=== PATIENT | female | born 1965 | race African-American/Black ===

== ENCOUNTER 2019-07-13 23:55 | Inpatient (IN) | payer MEDICAID ==
[~2019-07-13] VITALS: Ht 172.7 cm; Wt 82.6 kg
--- NOTE | 2019-07-14 00:10 | NUR ---
PT AAOX4. [id number] C/O GENERALIZED BODY ACHE. PT STATES SHE FEELS THAT HER BODY "STARTED HURTING AFTER I SHOWERED." PT PLACED IN GOWN AND PLACED ON MONITOR AND PULSE OX. VSS. NO ACUTE DISTRESS NOTED.
--- NOTE | 2019-07-14 00:15 | NUR ---
XRAY AT BEDSIDE
[2019-07-14] MEDS ORDERED: MORPHINE SULFATE INJ 4 MG/ML DISP.SYRIN ONE (00:27)
[2019-07-14] MEDS ORDERED: ONDANSETRON HCL/PF 4 MG/2 ML VIAL ONE (00:27)
[2019-07-14] MEDS ORDERED: MORPHINE SULFATE INJ 2 MG/ML DISP.SYRIN IV ONE (00:30)
[2019-07-14] MEDS ORDERED: IV NS 0.9% 500 ML BAG IV ONE (00:30)
[2019-07-14] MEDS ORDERED: ONDANSETRON HCL/PF 4 MG/2 ML VIAL IVP ONE (00:30)
--- NOTE | 2019-07-14 00:40 | NUR ---
PILOT AT BEDSIDE FOR LAB COLLECTION.
[2019-07-14 00:44] LABS: BASOPHILS % (AUTO) 0.7 % (0.0-2.0); HEMATOCRIT 46 % (33-45); HEMOGLOBIN 14.9 g/dL (11.5-14.8); LYMPHOCYTES # (AUTO) 1.4 /CMM (0.8-4.8); LYMPHOCYTES % (AUTO) 21.4 % (20.0-44.0); MEAN CORPUSCULAR HGB CONC 33 g/dl (31.0-36.0); MEAN CORPUSCULAR VOLUME 82 fL (82-100); MONOCYTES # (AUTO) 0.5 /CMM (0.1-1.30); MONOCYTES % (AUTO) 7.4 % (2.0-12.0); NEUTROPHILS # (AUTO) 4.6 /CMM (1.8-8.9); NEUTROPHILS % (AUTO) 70.5 % (43.0-81.0); PLATELET COUNT (AUTO) 252 /CMM (150-450); RED BLOOD CELL COUNT(AUTO) 5.62 MIL/uL (4.0-5.2); WHITE BLOOD COUNT (AUTO) 6.5 K/uL (4.3-11.0)
[2019-07-14 00:54] LABS: CALCIUM, SERUM 10.4 mg/dL (8.5-10.1); POTASSIUM 3.7 mmol/L (3.5-5.1)
--- NOTE | 2019-07-14 01:02 | NUR ---
Patient is resting comfortably in bed. Easily aroused. VSS.
[2019-07-14 01:03] LABS: ALBUMIN 4.2 g/dL (3.4-5.0); BILIRUBIN,DIRECT 0.1 mg/dL (0.0-0.2); BILIRUBIN,TOTAL 0.6 mg/dL (0.2-1.0); TOTAL PROTEIN, SERUM 8.6 g/dL (6.4-8.2)
--- NOTE | 2019-07-14 02:38 | NUR ---
REPORT GIVEN TO CARLEE PATEL FOR MAL[facility]
--- NOTE | 2019-07-14 02:42 | NUR ---
PT TRANSFERED PER ACLS PROTOCOL
[2019-07-14 02:50] VITALS: BP 126/79
--- NOTE | 2019-07-14 02:50 | NUR ---
RETAIL MANAGERJOB COUNSELOR NOTES PATIENT ARRIVED ON UNIT, 249 VIA GURNEY AND ACCOMPANIED BY ER STAFF; PATIENT AWAKE, A/O X2, WITH CONFUSION; BREATHING EVEN AND UNLABORED; NO SOB; NO S/S OF ACUTE RESPIRATORY DISTRESS NOTED; TELE MONITOR ATTACHED -- SINUS TACHY HR: 117; PATIENT IS A POOR HISTORIAN OF MEDICAL HISTORY; PATIENT SKIN INTACT; L HAND #22 INTACT AND PATENT, FLUSHING WELL, NO S/S OF REDNESS OR INFILTRATION NOTED; SAFETY PRECAUTIONS IMPLEMENTED; BED LOCKED IN LOW POSITION; SIDE RAILS X3; CALL LIGHT WITHIN REACH; WILL CONTINUE TO MONITOR
[2019-07-14] MEDS ORDERED: IV NS 0.9% 1,000 ML IV PRN ×2 (03:14→07:34)
[2019-07-14] MEDS ORDERED: ZOLPIDEM TARTRATE 5 MG TABLET PO PRN (03:30)
[2019-07-14] MEDS ORDERED: ASPIRIN 325 MG TABLET PO ONE (03:30)
[2019-07-14] MEDS ORDERED: HYDROCODONE/APAP 5/325MG 1 EACH TABLET PO PRN (03:30)
[2019-07-14] MEDS ORDERED: Z GUARD REMEDY 2 OZ OINT TP PRN (03:30)
[2019-07-14] MEDS ORDERED: ONDANSETRON HCL/PF 4 MG/2 ML VIAL IVP PRN (03:30)
[2019-07-14] MEDS ORDERED: MAGNESIUM HYDROXIDE 30 ML UDC PO PRN (03:30)
[2019-07-14] MEDS ORDERED: MAG HYDROX/AL HYDROX/SIMETH 30 ML UDC PO PRN (03:30)
[2019-07-14 04:00] VITALS: BP 128/81
--- NOTE | 2019-07-14 05:45 | NUR ---
LADDERMAN NOTES LEGAL ANALYST AT BEDSIDE; PATIENT REFUSING LABS; PATIENT WAS EDUCATED ON IMPORTANCE OF COMPLIANCE DURING HOSPITALIZATION; PATIENT CONFUSED AND STATED "THEY ALREADY TOOK 6 TUBES FROM ME DOWNSTAIRS, WHY DO I HAVE TO GET MORE BLOOD WORK DONE AGAIN?" PATIENT WAS EDUCATED THAT ORDERS LABS TO BE DRAWN DAILY. PATIENT AGREED TO HAVE LABS DRAWN
--- NOTE | 2019-07-14 06:23 | NUR ---
PHYTOPATHOLOGIST CLOSING NOTES PATIENT RESTING IN BED COMFORTABLY; A/O X2; PATIENT IS CONFUSED; BREATHING EVEN AND UNLABORED; NO SOB NOTED; NO DISTRESS NOTED; TELE MONITOR READING S.TACHY WITH HR 105; L HAND # 22 INTACT AND PATENT; FLUSHING WELL, NO S/S OF REDNESS OR INFILTRATION; NS RUNNING @ 75ML/HR; PATIENT TOLERATING IVF WELL; ALL NEEDS RENDERED; SAFETY PRECAUTIONS IN PLACE; BED LOCKED IN LOW POSITION; SIDE RAILS X2; CALL LIGHT WITHIN REACH; WILL ENDORSE MALKA TO ONCOMING SHIFT
[2019-07-14 06:53] LABS: BASOPHILS % (AUTO) 0.4 % (0.0-2.0); EOSINOPHILS % (AUTO) 0.1 % (0.0-6.0); HEMATOCRIT 43 % (33-45); HEMOGLOBIN 13.6 g/dL (11.5-14.8); LYMPHOCYTES # (AUTO) 1.9 /CMM (0.8-4.8); LYMPHOCYTES % (AUTO) 28.5 % (20.0-44.0); MEAN CORPUSCULAR HGB CONC 32 g/dl (31.0-36.0); MEAN CORPUSCULAR VOLUME 81 fL (82-100); MONOCYTES # (AUTO) 0.6 /CMM (0.1-1.30); MONOCYTES % (AUTO) 8.9 % (2.0-12.0); NEUTROPHILS # (AUTO) 4.2 /CMM (1.8-8.9); NEUTROPHILS % (AUTO) 62.1 % (43.0-81.0); PLATELET COUNT (AUTO) 251 /CMM (150-450); RED BLOOD CELL COUNT(AUTO) 5.24 MIL/uL (4.0-5.2); WHITE BLOOD COUNT (AUTO) 6.8 K/uL (4.3-11.0)
[2019-07-14 07:12] LABS: ALBUMIN 3.8 g/dL (3.4-5.0); BILIRUBIN,TOTAL 0.7 mg/dL (0.2-1.0); CALCIUM, SERUM 9.5 mg/dL (8.5-10.1); CREATININE 0.8 mg/dL (0.6-1.3); PHOSPHORUS 3.1 mg/dL (2.5-4.9); POTASSIUM 3.6 mmol/L (3.5-5.1); TOTAL PROTEIN, SERUM 7.9 g/dL (6.4-8.2)
[2019-07-14 07:14] LABS: THYROID STIMULATING HORMONE 1.316 uIU/mL (0.358-3.74)
--- NOTE | 2019-07-14 07:30 | NUR ---
ms rn received on bed, awake,patient is confuse, not in any form of distress, respirations even and unlabored,no sob noted. patient has many complains, noted to be non compliant from prevoius shift. no pain noted, will monitor patient.
[2019-07-14 08:10] VITALS: BP 119/77
[2019-07-14] MEDS ORDERED: METOPROLOL TARTRATE 25 MG TABLET PO SCH (09:00)
--- NOTE | 2019-07-14 09:00 | NUR ---
ms rn held meds, patient on npo at this time, for ct angio.
[2019-07-14] MEDS ORDERED: METOPROLOL TARTRATE INJ 5 MG/5 ML AMPUL IVP PRN (09:30)
[2019-07-14] MEDS ORDERED: NITROGLYCERIN 0.4 MG/TAB BOTTLE SL PRN (09:30)
[2019-07-14] MEDS ORDERED: HYDR-4384 PO (10:52)
[2019-07-14] MEDS ORDERED: OXYC30TA86 PO (10:53)
--- NOTE | 2019-07-14 11:00 | NUR ---
ms rn patient is refusing ct angio, even the consent not signed.
[2019-07-14] MEDS: PANTOPRAZOLE 40 MG TABLET.DR PO SCH (12:56)
[2019-07-14] MEDS: METOPROLOL TARTRATE 50 MG TABLET PO SCH ×2 (12:57→18:24)
[2019-07-14] MEDS: LISINOPRIL (5MG) 5 MG TABLET PO SCH (12:57)
--- NOTE | 2019-07-14 13:28 | NUR ---
Social service consult requested by MD Gay for possible homelessness. Per MD notes, pt is a [id number] female brought by rescue ambulance with a chief complaint of "not feeling well" as the patient claimed. The patient also verbalized that she felt her blood pressure is high. Upon arrival in emergency room, the patient's blood pressure was recorded 163/104 with a HR of 111. Per chart review, pt has a history of anxiety and Bipolar Disorder. ALUMINUM HYDROXIDE PROCESS OPERATOR attempted to assess the pt. However, pt is confused and unable to provide any meaningful information at this time. ALUMINUM HYDROXIDE PROCESS OPERATOR will reassess the pt when she is able to provide meaningful information.
--- NOTE | 2019-07-14 15:00 | NUR ---
ms rn sleeping , waiting for dr. olvera for psych eval.
--- NOTE | 2019-07-14 17:00 | NUR ---
ms rn patient wants to do exam now, but no more technitians. wants it in am.
--- NOTE | 2019-07-14 19:00 | NUR ---
MS RN DID NOT COME, PATIENT REFUSED IV HYDRATION FOR WHOLE DAY.
--- NOTE | 2019-07-14 20:00 | NUR ---
ms maylin initial notes received report from am nurse and seen pt in bed resting with eyes closed , respiration even and non-labored not in any acute distress noted. kept her warm and comfortable at all times. place call light at reach.
[2019-07-14 20:38] VITALS: BP 90/57
[2019-07-14] MEDS: ATORVASTATIN 10 MG TABLET PO SCH (22:00)
--- NOTE | 2019-07-15 | NUR ---
ms operations boardman notes pt remain sleeping comfortably in bed without any distress noted. IVF still infusing.
[2019-07-15] MEDS: ACETAMINOPHEN 325 MG TABLET PO PRN ×3 (05:51→21:56)
[2019-07-15] MEDS: METOPROLOL TARTRATE 50 MG TABLET PO SCH ×4 (06:00→17:51)
--- NOTE | 2019-07-15 06:19 | NUR ---
MS TOPOGRAPHIC COMPUTATOR NOTES PT WOKE UP AND ASSISTED TO USED THE BATHROOM FOR SAFETY. NOTED SHE NEEDS INSTRUCTIONS WHERE TO GO IF LEFT AND RIGHT BECAUSE OF HER VISION PROBLEM. TYLENOL GIVEN 650M PO FOR LOWER BACK PAIN. SHE REQUESTED TO HAVE PAIN SHOT BUT I EXPLAINED TO HER THAT I CAN'T GIVE ANY PAIN SHOT BECAUSE OF HER LOW BP 98/52. STARTED A NEW IVF AT 125ML/HR TO BE INFUSED ORDERED. MORNING CARE DONE AND BEDDINGS ALSO REPLACED FOR PT COMFORT. KEPT HER WARM AND COMFORTABLE AT ALL TIMES. WILL CONTINUE MONITORING.
--- NOTE | 2019-07-15 07:10 | NUR ---
MS RN NOTES RECEIVED PATIENT IN BED ALERT AND AWAKE LAYING IN BED. HOB ELEVATED. NO SOB. DENIES ANY C/O PAIN NOR DISCOMFORT AT THIS TIME. LEFT HAND # 22 INTACT AND PATENT INFUSING NS @ 125ML/HR HEMA WELL. BED IN LOWEST POSITION, LOCKED. BED ALARM ON. CALL LIGHT WITHIN REACH.
[2019-07-15 07:13] LABS: BASOPHILS % (AUTO) 0.5 % (0.0-2.0); EOSINOPHILS % (AUTO) 0.5 % (0.0-6.0); HEMATOCRIT 38 % (33-45); HEMOGLOBIN 12.2 g/dL (11.5-14.8); LYMPHOCYTES # (AUTO) 1.3 /CMM (0.8-4.8); LYMPHOCYTES % (AUTO) 37.5 % (20.0-44.0); MEAN CORPUSCULAR HGB CONC 32 g/dl (31.0-36.0); MEAN CORPUSCULAR VOLUME 82 fL (82-100); MONOCYTES # (AUTO) 0.4 /CMM (0.1-1.30); MONOCYTES % (AUTO) 11.7 % (2.0-12.0); NEUTROPHILS # (AUTO) 1.7 /CMM (1.8-8.9); NEUTROPHILS % (AUTO) 49.8 % (43.0-81.0); PLATELET COUNT (AUTO) 214 /CMM (150-450); RED BLOOD CELL COUNT(AUTO) 4.64 MIL/uL (4.0-5.2); WHITE BLOOD COUNT (AUTO) 3.4 K/uL (4.3-11.0)
[2019-07-15] MEDS: PANTOPRAZOLE 40 MG TABLET.DR PO SCH (07:30)
[2019-07-15 07:55] LABS: ALBUMIN 3.2 g/dL (3.4-5.0); BILIRUBIN,TOTAL 0.7 mg/dL (0.2-1.0); CALCIUM, SERUM 8.4 mg/dL (8.5-10.1); CREATININE 0.8 mg/dL (0.6-1.3); MAGNESIUM 1.9 mg/dL (1.8-2.4); PHOSPHORUS 3.1 mg/dL (2.5-4.9); POTASSIUM 3.3 mmol/L (3.5-5.1); TOTAL PROTEIN, SERUM 6.7 g/dL (6.4-8.2)
[2019-07-15 08:00] VITALS: BP 96/55
[2019-07-15] MEDS: ASPIRIN EC 81 MG TABLET.DR PO SCH (08:37)
[2019-07-15] MEDS: LISINOPRIL (5MG) 5 MG TABLET PO SCH (08:39)
--- NOTE | 2019-07-15 08:39 | NUR ---
MS RN NOTES HELD QING B/P
[2019-07-15] MEDS ORDERED: IOHEXOL-350 100 ML VIAL IV ONE (10:37)
[2019-07-15] MEDS ORDERED: IV NS 0.9% 250 ML IV ONE (10:38)
[2019-07-15] MEDS ORDERED: METOPROLOL TARTRATE INJ 5 MG/5 ML AMPUL ONE (10:55)
[2019-07-15] MEDS ORDERED: NITROGLYCERIN 0.4 MG/TAB BOTTLE ONE (10:55)
--- NOTE | 2019-07-15 11:15 | NUR ---
PT awake alert oriented vital sign stable during CTA completed report given to Aleks PATEL question answered
[2019-07-15 11:29] VITALS: BP 95/61
--- NOTE | 2019-07-15 11:29 | NUR ---
MS RN NOTES PATIENT RETURNED TO UNIT FROM CTA
[2019-07-15] MEDS ORDERED: POTASSIUM CHLORIDE 20 MEQ TAB.PRT.SR PO ONE (11:45)
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
[2019-07-15 16:00] VITALS: BP 96/50
--- NOTE | 2019-07-15 18:34 | NUR ---
MS RN NOTES ALERT AND ORIENTED X4. NO S/S OF RESPIRATORY DISTRESS. HOB ELEVATED. DENIES ANY C/O PAIN NOR DISCOMFORT AT THIS TIME. COOPERATIVE WITH CARE. NO BEHAVIORAL ISSUES OBSERVED DURING THE SHIFT. LEFT HAND # 22 AND RIGHT AC # 18 INTACT AND PATENT. BED IN LOWEST POSITION, LOCKED. BED ALARM ON. CALL LIGHT WITHIN REACH. IN NO APPARENT DISTRESS.
[2019-07-15 20:00] VITALS: BP 72/57
[2019-07-15] MEDS ORDERED: IV NS 0.9% 1,000 ML IV PRN (21:00)
[2019-07-15] MEDS ORDERED: IV NS 0.9% 1,000 ML BAG IV ONE (21:00)
[2019-07-15] MEDS: ATORVASTATIN 10 MG TABLET PO SCH (21:35)
[2019-07-15 22:00] VITALS: BP 92/58
[2019-07-15] MEDS ORDERED: OLANZAPINE 10 MG TABLET PO SCH (22:00)
[2019-07-16 05:00] VITALS: BP 101/58
[2019-07-16] MEDS: METOPROLOL TARTRATE 50 MG TABLET PO SCH ×3 (05:46→11:56)
--- NOTE | 2019-07-16 06:09 | NUR ---
MS RN NOTES AWAKE & RESPONSIVE. NOT IN ANY DISTRESS. NO SOB NOTED. DENIES ANY PAIN OR DISCOMFORT AT THIS TIME. WITH IV-HL PATENT & INTACT. MONITORED ACCORDINGLY. CALL LIGHT WITHIN REACH. BED IN LOWEST POSITION. SR UP X 2 FOR SAFETY. WILL ENDORSE TO NEXT SHIFT.
--- NOTE | 2019-07-16 07:55 | NUR ---
MS RN NOTES PATIENT RECEIVED RESTING ON BED. SLEEPING, ABLE TO AROUSE THROUGH VERBAL AND TACTILE STIMULI. NO ACUTE DISTRESS. BREATHING EVEN AND UNLABORED. NO C/O PAIN OR DISCOMFORT. WILL CONTINUE TO MONITOR. BED LOCKED AND IN LOW POSITION. BILATERAL UPPER SIDE RAILS UP AND LOCKED. CALL LIGHT WITHIN EASY REACH
[2019-07-16 08:00] VITALS: BP 105/57
[2019-07-16] MEDS: ASPIRIN EC 81 MG TABLET.DR PO SCH (08:46)
[2019-07-16] MEDS: PANTOPRAZOLE 40 MG TABLET.DR PO SCH (08:46)
[2019-07-16] MEDS: LISINOPRIL (5MG) 5 MG TABLET PO SCH (08:47)
[2019-07-16 09:29] LABS: CALCIUM, SERUM 8.6 mg/dL (8.5-10.1); CREATININE 0.7 mg/dL (0.6-1.3); POTASSIUM 3.5 mmol/L (3.5-5.1)
[2019-07-16 09:35] LABS: BILIRUBIN,TOTAL 0.4 mg/dL (0.2-1.0); PHOSPHORUS 3.2 mg/dL (2.5-4.9); TOTAL PROTEIN, SERUM 6.3 g/dL (6.4-8.2)
[2019-07-16 11:56] VITALS: BP 104/58
[2019-07-16] MEDS: ACETAMINOPHEN 325 MG TABLET PO PRN (11:56)
--- NOTE | 2019-07-16 13:11 | NUR ---
MS RN NOTES PATIENT ON THE PHONE WITH FRIEND, VERBALIZED FRIEND IS AT THE ADDRESS SHE'S GOING TO TO MEET THE PATIENT. WILL CONTINUE TO MONITOR
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
== END 2019-07-16 15:49 | disposition home or self-care (01) | DRG 190 ==
LOC: ER 07-14 → TELE 07-14 02:26 → MED 07-14 09:17
PROVIDERS: ADMIT Nurse Practitioner Acute Care; ATTEND Nurse Practitioner Acute Care
DX: I21.4 Non-ST elevation (NSTEMI) myocardial infarction (principal); E87.0 Hyperosmolality and hypernatremia; N17.9 Acute kidney failure, unspecified; E66.01 Morbid (severe) obesity due to excess calories; F31.9 Bipolar disorder, unspecified; I10 Essential (primary) hypertension; E78.5 Hyperlipidemia, unspecified; I16.0 Hypertensive urgency; G89.29 Other chronic pain; H54.7 Unspecified visual loss; R74.0 Nonspecific elevation of levels of transaminase and lactic acid dehydrogenase [LDH]; Z68.27 Body mass index [BMI] 27.0-27.9, adult; F29 Unspecified psychosis not due to a substance or known physiological condition; Z59.0 Homelessness
CPT/HCPCS: 36415; 71045-TC; 75574; 76700-TC; 80048-TC; 80053-TC; 80061-TC; 80076-TC; 83735-TC; 84100-TC; 84443-TC; 84484-TC; 85025-TC; 85730-TC; 87081-TC; 93307-TC; 97110-TC; 97116-TC; 97530-TC; G0378; J2270; J2405; J3490; J7030; J7040; J7050; Q9967